=== PATIENT | male | born 1985 ===

== ENCOUNTER 2022-03-16 13:37 | Emergency (ER) | payer SELFPAY ==
[2022-03-16] MEDS ORDERED: ASPIRIN 81 MG TAB CHEW PO ONE (15:45)
--- NOTE | 2022-03-16 16:29 | XRay Report ---
CHEST 2 VIEWS INDICATION / CLINICAL INFORMATION: DYSPNEA. COMPARISON: None available. FINDINGS: SUPPORT DEVICES: None. HEART / MEDIASTINUM: No significant abnormality. LUNGS / PLEURA: No significant pulmonary or pleural abnormality. No pneumothorax. ADDITIONAL FINDINGS: No significant additional findings. IMPRESSION: 1. No acute findings. Signer Name: Luz Salazar MD Signed: 03/16/2022 4:25 PM Workstation Name: [id number]
[2022-03-16 17:10] LABS: Basophils % (Auto) 0.5 % (0.0-1.8); Eosinophils % (Auto) 0.5 % (0.0-4.3); Hematocrit 44.3 % (35.5-45.6); Hemoglobin 15.3 gm/dl (11.8-15.2); Lymphocytes # (Auto) 1.8 K/mm3 (1.2-5.4); Lymphocytes % (Auto) 22.1 % (13.4-35.0); Mean Corpuscular HGB Conc 35 % (32-34); Mean Corpuscular Volume 86 fl (84-94); Monocytes # (Auto) 0.5 K/mm3 (0.0-0.8); Monocytes % (Auto) 5.7 % (0.0-7.3); Platelet Count 249 K/mm3 (140-440); Red Blood Count 5.14 M/mm3 (3.65-5.03); Red Cell Distribution Width 14.3 % (13.2-15.2)
[2022-03-16 17:25] LABS: Alanine Aminotransferase 31 units/L (7-56); Albumin 4.5 g/dL (3.9-5); Blood Urea Nitrogen 11 mg/dL (9-20); Calcium 9.4 mg/dL (8.4-10.2); Hemolysis Index 7
[2022-03-16 17:28] LABS: BUN/Creatinine Ratio 18
--- NOTE | 2022-03-16 20:32 | Emergency Department Report ---
ED Shortness of Breath HPI - General Chief Complaint: Dyspnea/Respdistress Stated Complaint: SHORT OF BREATH Source: patient Mode of arrival: Ambulatory Limitations: Language Barrier - History of Present Illness Initial Comments: Patient is a 36-year-old male with no past medical history except chronic cocaine abuse who presents to the ED with complaint of acute onset persistent shortness of breath of the last 2 days after smoking cocaine. Patient states that the shortness of breath is pressure-like and is intermittent. Patient denies dizziness, syncope, nausea and vomiting, chest pain, fever, chills, cough, headache, neck pain, jaw pain, palpitations, abdominal pain, back pain, numbness and tingling or weakness of upper and lower extremities bilaterally. MD Complaint: shortness of breath -: days(s) (2) Radiation: other (Diffuse chest) Severity: moderate Quality: dull, other (Tightness) Consistency: intermittent Improves With: rest Worsens With: lying flat, movement, coughing Known History Of: other (Chronic cocaine abuse) Context: other (Cocaine abuse) Associated Symptoms: chest pain (Pressure) Treatments Prior to Arrival: none - Related Data Home Oxygen Therapy: No Previous Rx's Medication Instructions Recorded Last Taken Type Albuterol Sulfate [Proventil Hfa] 1 - 2 puff IH Q6H PRN #1 inh 03/16/22 Unknown Rx Allergies Allergy/AdvReac Type Severity Reaction Status Date / Time No Known Allergies Allergy Unverified 03/16/22 13:59 ED Review of Systems ROS: Stated complaint: SHORT OF BREATH Other details as noted in HPI Constitutional: denies: chills, fever Eyes: denies: eye pain, eye discharge, vision change ENT: denies: ear pain, throat pain Respiratory: shortness of breath. denies: cough, wheezing Cardiovascular: denies: chest pain, palpitations Endocrine: no symptoms reported Gastrointestinal: denies: abdominal pain, nausea, vomiting, diarrhea Genitourinary: denies: urgency, dysuria Musculoskeletal: denies: back pain, joint swelling, arthralgia Skin: denies: rash, lesions Neurological: denies: headache, weakness, paresthesias Psychiatric: denies: anxiety, depression Hematological/Lymphatic: denies: easy bleeding, easy bruising ED Past Medical Hx - Past Medical History Previous Medical History?: No - Surgical History Past Surgical History?: No - Medications Home Medications: Home Medications Medication Instructions Recorded Confirmed Last Taken Type Albuterol Sulfate [Proventil Hfa] 1 - 2 puff IH Q6H PRN #1 inh 03/16/22 Unknown Rx ED Physical Exam - General Limitations: Language Barrier General appearance: alert, in no apparent distress - Head Head exam: Present: atraumatic, normocephalic, normal inspection - Eye Eye exam: Present: normal appearance, PERRL, EOMI Pupils: Present: normal accommodation - ENT ENT exam: Present: normal exam, normal orophraynx, mucous membranes moist, TM's normal bilaterally, normal external ear exam - Neck Neck exam: Present: normal inspection, full ROM. Absent: tenderness, meningismus, lymphadenopathy - Respiratory Respiratory exam: Present: normal lung sounds bilaterally. Absent: respiratory distress, wheezes, rales, rhonchi, stridor, chest wall tenderness, accessory muscle use, decreased breath sounds - Cardiovascular Cardiovascular Exam: Present: regular rate, normal rhythm, normal heart sounds. Absent: systolic murmur, diastolic murmur, rubs, gallop - GI/Abdominal GI/Abdominal exam: Present: soft, normal bowel sounds. Absent: tenderness, g uarding, rebound, hyperactive bowel sounds, hypoactive bowel sounds, organomegaly, mass - Extremities Exam Extremities exam: Present: normal inspection, full ROM, normal capillary refill - Back Exam Back exam: Present: normal inspection, full ROM. Absent: tenderness, CVA tenderness (R), CVA tenderness (L), muscle spasm, paraspinal tenderness, vertebral tenderness - Neurological Exam Neurological exam: Present: alert, oriented X3, CN II-XII intact, normal gait, reflexes normal - Psychiatric Psychiatric exam: Present: normal affect, normal mood, anxious - Skin Skin exam: Present: warm, dry, intact, normal color. Absent: rash ED Course Vital Signs 03/16/22 13:55 Temperature 98.4 F Pulse Rate 75 Respiratory 20 Rate Blood Pressure 142/82 [Right] O2 Sat by Pulse 96 Oximetry ED Medical Decision Making - Lab Data Result diagrams: 03/16/22 16:44 03/16/22 16:44 - EKG Data EKG shows normal: sinus rhythm Rate: bradycardia - EKG Data Interpretation: normal EKG 03/16/22 20:35 EKG shows sinus bradycardia with a ventricular rate of [address] or T wave abnormalities. - Radiology Data Radiology results: report reviewed, image reviewed [facility] [address] [place] [address] XRay Report Signed Patient: KALEY ZARCO MR#: [id number] : 1985 Acct:[id number] Age/Sex: 36 / M ADM Date: 03/16/22 Loc: ED Attending Dr: Ordering Physician: STEPHIE KOVACS Date of Service: 03/16/22 Procedure(s): XR chest routine 2V Accession Number(s): [id number] cc: STEPHIE KOVACS Fluoro Time In Minutes: CHEST 2 VIEWS INDICATION / CLINICAL INFORMATION: DYSPNEA. COMPARISON: None available. FINDINGS: SUPPORT DEVICES: None. HEART / MEDIASTINUM: No significant abnormality. LUNGS / PLEURA: No significant pulmonary or pleural abnormality. No pneumothorax. ADDITIONAL FINDINGS: No significant additional findings. IMPRESSION: 1. No acute findings. Signer Name: Luz Salazar MD Signed: 03/16/2022 4:25 PM Workstation Name: [id number] Transcribed By: Dictated By: Luz Salazar MD Electronically Authenticated By: Lzu Salazar MD Signed Date/Time: 03/16/221624 DD/ 23 TD/TT: - Medical Decision Making This is a 36-year-old male with no past medical history except chronic cocaine abuse who presents to the ED with complaint of acute onset persistent shortness of breath of the last 2 days after smoking cocaine. Patient states that the shortness of breath is pressure-like and is intermittent. In the ED, patient is alert and oriented x3 and is not in any distress. All lab test results were reviewed and are all nonactionable. Chest x-ray showed no acute cardiopulmonary abnormalities or pneumonitis. EKG shows sinus bradycardia with a ventricular rate of [address] or T wave abnormalities. Patient was treated with aspirin in the ED. Patient's heart score is 0 and patient is PERC negative per Wells criteria. Patient was discharged home on albuterol inhaler t o aid in intermittent shortness of breath and counseled on the dangers of substance abuse. Patient was advised to follow-up with his primary care physician in 5 to 7 days for reevaluation. Patient advised return to the ED immediately if symptoms get worse. - Differential Diagnosis Anxiety; bronchitis; pneumonia; ACS; PE; dissection; Critical care attestation.: If time is entered above; I have spent that time in minutes in the direct care of this critically ill patient, excluding procedure time. ED Disposition Clinical Impression: Shortness of breath, Substance abuse, Anxiety as acute reaction to exceptional stress Disposition: HOME / SELF CARE / HOMELESS Is pt being admited?: No Does the pt Need Aspirin: No Condition: Stable Instructions: Shortness of Breath, Adult, [id number], Generalized Anxiety Disorder, Adult Additional Instructions: Todos los resultados de las pruebas de laboratorio fueron revisados ??y no son procesables. La radiografa de trax no mostr anomalas cardiopulmonares agudas ni neumonitis. Por lo tanto, tome los medicamentos con alimentos, candelaria muchos lquidos y duran un seguimiento con enrique mdico de atencin primaria en 5 a 7 reyes para tiffani reevaluacin. Considere dejar de abusar de la cocana para mejorar clay sntomas. Regrese al servicio de urgencias inmediatamente si los sntomas empeoran. Prescriptions: Albuterol Sulfate [Proventil Hfa] 1 - 2 puff IH Q6H PRN #1 inh PRN Reason: Shortness Of Breath Referrals: [facility] [Provider Group] - 3-5 Days Time of Disposition: 20:39 Print Language: YORUBA
[2022-03-17 01:55] VITALS: BP 140/75
--- NOTE | 2022-03-18 17:38 | Electrocardiograph Report ---
[facility] Test Date: 2022-03-16 Test Time: 16:25:27 Pat Name: KALEY ZARCO Department: Room: Gender: M [employer]: ENZO : 1985 Requested By: MICHAEL WILCOX Order Number: [id number] Reading MD: Rakesh Camacho Measurements Intervals [place] Rate: 58 P: 59 NM: 154 QRS: 21 QRSD: 92 T: 10 QT: 434 QTc: 426 Interpretive Statements Sinus bradycardia No previous ECG available for comparison Electronically Signed On 03-18-2022 17:37:38 EDT by Rakesh Camacho
== END 2022-03-16 21:20 | disposition home or self-care (01) ==
LOC: ED 13:37
DX: R06.02 Shortness of breath (principal); F19.10 Other psychoactive substance abuse, uncomplicated; F41.1 Generalized anxiety disorder; F43.0 Acute stress reaction; Z79.899 Other long term (current) drug therapy
CPT/HCPCS: 36415; 71046; 80053; 84484; 85025; 93005; 99284